=== PATIENT | female | born 1980 | race Caucasian/White ===

== ENCOUNTER 2017-09-02 13:39 | Emergency (ER) | payer OTHER | END 2017-09-02 14:28 | disposition home or self-care (01) | LOC: E/R 13:39 | DX: J02.9 Acute pharyngitis, unspecified (principal) | CPT/HCPCS: 99283; Z7502 ==

== ENCOUNTER 2018-03-06 08:36 | Emergency (ER) | payer OTHER ==
[2018-03-06 09:12] LABS: URINE PH (Dip) POC 5.5 (5.0-8.5)
[2018-03-06 09:12] LABS: URINE BLOOD (Dip) POC 2+ (NEGATIVE); URINE GLUCOSE (Dip) POC Negative (NEGATIVE); URINE KETONES (Dip) POC Trace (NEGATIVE); URINE LEUKOCYTE EST (Dip) POC Trace (NEGATIVE); URINE NITRITE (Dip) POC Negative (NEGATIVE); URINE TOTAL PROTEIN POC 1+ (NEGATIVE)
== END 2018-03-06 12:05 | disposition home or self-care (01) ==
LOC: FTE 08:36
DX: N39.0 Urinary tract infection, site not specified (principal)
CPT/HCPCS: 81003; 81025; 87591; 99283